=== PATIENT | female | born 1990 ===

== ENCOUNTER → 2018-09-07 21:16 | Outpatient (REF) | payer OTHER, SELFPAY ==
[2018-09-07 21:31] LABS: Add Manual Diff / Slide Review NO; Basophils Percent Auto 0.7 % (0-2); Eosinophils Percent Auto 2.6 % (2-4); Hematocrit 39.4 % (36-46); Hemoglobin 13.5 g/dL (12.0-16.0); Lymphocytes Percent Auto 25.5 % (25-40); Mean Corpuscular HGB Conc 34.3 % (30-36); Mean Corpuscular Hemoglobin 31.1 PG (26-34); Mean Corpuscular Volume 90.9 fL (80-100); Monocytes Percent Auto 5.2 % (3-14); Neutrophils Absolute Auto 4400 /uL (1500-7000); Platelet Count 243 X10^3/uL (150-400); Red Blood Cell Count 4.33 X10^6/uL (4.0-5.2); Red Cell Distribution Width 13.6 % (11.6-14.8); White Blood Cell Count 6.6 X10^3/uL (4.5-11.0)
[2018-09-07 22:06] LABS: Alanine Aminotransferase 26 IU/L (9-52); Albumin 4.8 g/dL (3.5-5.0); Alkaline Phosphatase 42 U/L (38-126); Aspartate Aminotransferase 17 IU/L (14-36); Bilirubin Total 0.7 mg/dL (0.2-1.3); Blood Urea Nitrogen 9 mg/dL (7-17); Calcium 9.5 mg/dL (8.4-10.2); Carbon Dioxide 23 mmol/L (22-32); Chloride 102 mmol/L (98-107); Estimated Glomerular Filt Rate > 60.0 mL/min (>60); Globulin 2.4 g/dL (1.7-4.1); Glucose 79 mg/dL (70-100); HEMOLYSIS < 15 (0-50); Potassium 3.9 mmol/L (3.4-5.1); Sodium 140 mmol/L (137-145); Total Protein 7.2 g/dL (6.3-8.2)
[2018-09-07 22:07] LABS: Hemoglobin A1C% w Est Avg Glu 4.7 % (4.0-6.0)
[2018-09-07 22:25] LABS: HCG Quantitative /Beta subunit 1259.8 mIU/mL
[2018-09-07 23:13] LABS: Vitamin B12 828 pg/mL (239-931)
[2018-09-10 13:46] LABS: Progesterone 30.4 ng/mL
== END ==
LOC: LAB 21:16
PROVIDERS: Visit Provider Naturopath
DX: O02.81 Inappropriate change in quantitative human chorionic gonadotropin (hCG) in early pregnancy (principal)
CPT/HCPCS: 36415; 80053; 82607; 82746; 83036; 84144; 84702; 85025